=== PATIENT | male | born 1985 | race Caucasian/White ===

== ENCOUNTER 2017-11-14 19:37 | Emergency (ER) | payer OTHER ==
[~2017-11-14] VITALS: Ht 172.7 cm; Wt 77.1 kg
[~2017-11-14 19:37] MED LIST: CLOT1SO TOP; Hibiclens120 ML EXT; MUPI2TO TOP; NYST100SU MT; OXYACE5T PO; OXYACE7.5T PO; PENVK500 PO; RXOXYACE PO; SULTRIDS PO
[2017-11-14] MEDS ORDERED: AMPDEX5 (19:41)
== END 2017-11-14 20:33 | disposition home or self-care (01) ==
LOC: ER 19:37
DX: M79.644 Pain in right finger(s) (principal); M79.641 Pain in right hand; W22.8XXA Striking against or struck by other objects, initial encounter; Z79.899 Other long term (current) drug therapy; F17.200 Nicotine dependence, unspecified, uncomplicated
CPT/HCPCS: 29130; 73130; 99283

== ENCOUNTER 2017-11-17 20:18 | Emergency (ER) | payer OTHER ==
[~2017-11-17] VITALS: Ht 172.7 cm; Wt 79.4 kg
[~2017-11-17 20:18] MED LIST changes: +AMPDEX5
== END 2017-11-17 22:51 | disposition home or self-care (01) ==
LOC: ER 20:18
DX: S62.616A Displaced fracture of proximal phalanx of right little finger, initial encounter for closed fracture (principal); F17.200 Nicotine dependence, unspecified, uncomplicated; X58.XXXA Exposure to other specified factors, initial encounter
CPT/HCPCS: 29125; 99283